=== PATIENT | female | born 1980 | race Caucasian/White ===

== ENCOUNTER 2016-08-12 19:32 | Emergency (ER) | payer BC ==
[~2016-08-12 19:32] MED LIST: Doxycycline 100 MG Tab PO ONE
[2016-08-12 19:39] VITALS: BP 155/96
[2016-08-12] MEDS ORDERED: methylPREDNISolone Sodium Succinate 125 MG/2 ML SDV IM STA (19:58)
[2016-08-12] MEDS ORDERED: cefTRIAXone 1 GM Vial IM ONE (19:58)
[2016-08-12] MEDS ORDERED: Take Home: Doxycycline 100 MG Tab, 4 Tab Pack PO ONE (19:59)
--- NOTE | 2016-08-12 20:09 | EDM.PDOC ---
ED HPI GENERAL MEDICAL PROBLEM - General Chief Complaint: General Stated Complaint: sinuses Time Seen by Provider: 08/12/16 19:40 Source of Information: Reports: Patient History Limitations: Reports: No Limitations - History of Present Illness INITIAL COMMENTS - FREE TEXT/NARRATIVE: This patient is a 36 year female that presents to the ER. Patient reports that since Sunday she has been having left sided congestion, facial pressure, sinus pain. She reports that she has been doing sinus rinses without success. Patient denies west[place], dizziness, n, v, d, f, cp, soa, abd pain, neck pain, sore throat. Patient reports she was prescribed augmentin on , she has taken each dose as prescribed per patient, but no improvement. Onset Date: 08/06/16 Duration: Day(s): (6) Location: Reports: Face Quality: Reports: Ache, Pressure, Throbbing Improves with: Reports: None Worsens with: Reports: None Associated Symptoms: Denies: Confusion, Chest Pain, Cough, cough w sputum, Diaphoresis, Fever/Chills, Headaches, Loss of Appetite, Malaise, Nausea/Vomiting , Rash, Seizure, Shortness of Breath, Syncope, Weakness Left Face Pain Score (Numeric/FACES): 8 - Related Data Allergies Allergy/AdvReac Type Severity Reaction Status Date / Time rofecoxib [From Vioxx] Allergy Cannot Verified 08/12/16 19:33 Remember Home Meds: Home Meds Acyclovir 1 tab PO DAILY 08/12/16 [History] Cholecalciferol (Vitamin D3) [Vitamin D3] 1,000 units PO DAILY 08/12/16 [History ] Loratadine [Claritin] 10 mg PO DAILY 08/12/16 [History] Montelukast [Singulair] 10 mg PO DAILY 08/12/16 [History] Past Medical History Cardiovascular History: Reports: Blood Clots/VTE/DVT Neurological History: Reports: Concussion - Past Surgical History HEENT Surgical History: Reports: Other (See Below) Other HEENT Surgeries/Procedures: "sinus surgery" Social & Family History - Tobacco Use Smoking Status *Q: Current Every Day Smoker Years of Tobacco use: 20 Packs/Tins Daily: 0.5 - Caffeine Use Caffeine Use: Reports: Coffee, Soda - Recreational Drug Use Recreational Drug Use: No ED ROS GENERAL - Review of Systems Review Of Systems: See Below Constitutional: Reports: No Symptoms HEENT: Reports: Sinus Problem (left sinus pain, pressure, swelling. Congestion. ) Respiratory: Reports: No Symptoms Cardiovascular: Reports: No Symptoms Endocrine: Reports: No Symptoms GI/Abdominal: Reports: No Symptoms : Reports: No Symptoms Musculoskeletal: Reports: No Symptoms Skin: Reports: No Symptoms Neurological: Reports: No Symptoms Psychiatric: Reports: No Symptoms Hematologic/Lymphatic: Reports: No Symptoms Immunologic: Reports: No Symptoms ED EXAM, GENERAL - Physical Exam Exam: See Below Exam Limited By: No Limitations General Appearance: Alert, WD/WN, No Apparent Distress Eye Exam: Bilateral Eye: Normal Inspection, Periorbital Changes, PERRL Ears: Normal External Exam, Normal Canal, Hearing Grossly Normal, Normal TMs Ear Exam: Bilateral Ear: Auricle Normal, Canal Normal, TM normal Nose: Normal Inspection, Normal Mucosa, No Blood Throat/Mouth: Normal Inspection, Normal Lips, Normal Gums, Normal Oropharynx, Normal Voice, No Airway Compromise, Other (dental decay throughout. No visible dental abscess. or dental tenderness. No trismus. No peritonsular abscess. ) Head: Facial Swelling (left maxilla sinus. Pain. ), Sinus Tenderness (left maxilla sinus, ethmoid. failed light illumination consistent with sinusitis. ) Neck: Normal Inspection, Supple, Non-Tender, Full Range of Motion Respiratory/Chest: No Respiratory Distress, Lungs Clear, Normal Breath Sounds, No Accessory Muscle Use Cardiovascular: Normal Peripheral Pulses, Regular Rate, Rhythm, No Edema, No Gallop, No JVD, No Murmur, No Rub Peripheral Pulses: 2+: Radial (L), Radial (R) Back Exam: Normal Inspection, Full Range of Motion Extremities: Normal Inspection, Normal Range of Motion, Non-Tender, No Pedal Edema, Normal Capillary Refill Neurological: Alert, Oriented, Normal Cognition, Normal Gait, No Motor/Sensory Deficits Psychiatric: Normal Affect, Normal Mood Skin Exam: Warm, Dry, Intact, Normal Color, No Rash Lymphatic: No Adenopathy Course - Vital Signs Last Recorded V/S: Last Vital Signs Temp 98.7 F 08/12/16 19:36 Pulse 80 08/12/16 19:36 Resp 18 08/12/16 19:36 BP 155/96 H 08/12/16 19:36 Pulse Ox 99 08/12/16 19:36 - Orders/Labs/Meds Orders: Active Orders 24 hr Category Date Time Status cefTRIAXone [Rocephin] Med 08/12/16 19:58 Once 1 gm IM ONETIME ONE methylPREDNISolone Sod Succ [Solu-MEDROL] Med 08/12/16 19:58 Stat 125 mg IM NOW STA Meds: Medications Discontinued Medications Generic Name Dose Route Start Last Admin Trade Name Grant PRN Reason Stop Dose Admin Ceftriaxone Sodium 1 gm 08/12/16 19:58 Rocephin IM 08/12/16 19:59 ONETIME ONE Doxycycline Monohydrate 1 packet 08/12/16 19:59 Take Home: Doxycycline 100 Mg, 4 Tab Pack PO 08/12/16 20:00 ONETIME ONE Methylprednisolone Sodium Succinate 125 mg 08/12/16 19:58 Solu-Medrol IM 08/12/16 19:59 NOW STA Departure - Departure Time of Disposition: 20:13 Disposition: Home, Self-Care 01 Condition: Fair Clinical Impression: Acute sinusitis Qualifiers: Sinusitis location: maxillary Recurrence: non-recurrent Qualified Code(s): J01.00 - Acute maxillary sinusitis, unspecified - Discharge Information Instructions: Sinusitis, Adult, [id number] Forms: ED Department Discharge Additional Instructions: Followup with your primary care provider Return to the ER for worsening of condition or any emergent concerns Doxycycline 100mg 1 pill twice a day for 10 days #16 no refill Given #4 in ER. Sinus rinses Mucinex over the counter IbuProfen over the counter for pain and swelling - My Orders Last 24 Hours: My Active Orders 08/12/16 19:58 cefTRIAXone [Rocephin] 1 gm IM ONETIME ONE methylPREDNISolone Sod Succ [Solu-MEDROL] 125 mg IM NOW STA - Assessment/Plan Last 24 Hours: My Active Orders 08/12/16 19:58 cefTRIAXone [Rocephin] 1 gm IM ONETIME ONE methylPREDNISolone Sod Succ [Solu-MEDROL] 125 mg IM NOW STA Plan: PLEASE SEE RN NOTE FOR PFSH.
== END 2016-08-12 20:30 | disposition home or self-care (01) ==
LOC: CC.ED 19:32
DX: J01.00 Acute maxillary sinusitis, unspecified (principal); F17.210 Nicotine dependence, cigarettes, uncomplicated; Z88.8 Allergy status to other drugs, medicaments and biological substances; Z79.899 Other long term (current) drug therapy
CPT/HCPCS: 96372; 99283; A9270; J0696; J2930

== ENCOUNTER 2019-03-31 00:04 | Emergency (ER) | payer SELFPAY ==
[2019-03-31 00:32] LABS: O2 DELIVERY DEVICE ROOM AIR; O2 SATURATION ARTERIAL 98 % (95-98); PCO2 ARTERIAL 29 mm/Hg0 (35-45); PO2 ARTERIAL 104 mm/Hg (80-100)
--- NOTE | 2019-03-31 00:40 | EDM.PDOC ---
ED HPI GENERAL MEDICAL PROBLEM - General Chief Complaint: Behavioral/Psych Stated Complaint: suicide attempt Time Seen by Provider: 03/31/19 00:07 Source of Information: Reports: Patient History Limitations: Reports: Intoxication - History of Present Illness INITIAL COMMENTS - FREE TEXT/NARRATIVE: This patient is a 38 year old female that presents to the ER. Patient arrives with police. Patient and police are historians. Patient reports she was arguing with her . She then got in her car in the garage, started the vehicle. The patient reports that she was in the vehicle for "7-8 minutes." The police report that she was called to the residence for a welfare check. Police reports when she arrived, there was loud music coming from the garage, the garage door was opened, and a lot of smoke/fumes was present in the garage per police. Police removed patient from the vehicle. Police reports patient was alert and able to ambulate without difficulty. The patient reports she has burning eyes, watery, from allergies. She denies [place], dizziness, n, v, d, f, chest pain, shortness of breath, cough, abd pain. Patient is alert and oriented. Patient drinks about 7 shots of fireball a night and is a smoker. Patient denies homicidal ideations. She says she denies suicidal ideation now. Onset: Today Onset Date: 03/31/19 Severity: Moderate Improves with: Reports: None Worsens with: Reports: None Associated Symptoms: Denies: Confusion, Chest Pain, Cough, cough w sputum, Diaphoresis, Fever/Chills, Headaches, Loss of Appetite, Malaise, Nausea/Vomiting , Rash, Seizure, Shortness of Breath, Syncope, Weakness - Related Data Allergies Allergy/AdvReac Type Severity Reaction Status Date / Time ketorolac [From Toradol] Allergy Burning on Verified 03/31/19 00:10 Urination rofecoxib [From Vioxx] Allergy Cannot Verified 08/12/16 19:33 Remember seasonal allergies Allergy Other Uncoded 03/31/19 00:10 Home Meds: Home Meds Acyclovir 1 tab PO DAILY 08/12/16 [History] Loratadine [Claritin] 10 mg PO DAILY 08/12/16 [History] Vitamin E 400 unit PO DAILY 03/31/19 [History] Past Medical History Cardiovascular History: Reports: Blood Clots/VTE/DVT Neurological History: Reports: Concussion - Past Surgical History HEENT Surgical History: Reports: Other (See Below) Other HEENT Surgeries/Procedures: "sinus surgery" Social & Family History - Caffeine Use Caffeine Use: Reports: Coffee, Soda ED ROS GENERAL - Review of Systems Review Of Systems: See Below Constitutional: Reports: No Symptoms HEENT: Reports: Other (watery, burning eyes. "I just have bad allergies, I am allergic to molds, pollen, oak, and trees.") Respiratory: Denies: Shortness of Breath, Wheezing, Pleuritic Chest Pain, Cough , Sputum, Hemoptysis Cardiovascular: Reports: No Symptoms. Denies: Chest Pain, Dyspnea on Exertion, Edema, Lightheadedness, Palpitations, Syncope Endocrine: Reports: No Symptoms GI/Abdominal: Reports: No Symptoms. Denies: Abdominal Pain, Diarrhea, Nausea, Vomiting : Reports: No Symptoms Musculoskeletal: Reports: No Symptoms Skin: Reports: No Symptoms. Denies: Cyanosis Neurological: Reports: No Symptoms, Other (no gait ataxia). Denies: Confusion, Dizziness, Headache, Numbness, Seizure, Syncope, Tingling, Tremors, Trouble Speaking, Weakness, Change in Speech, Gait Disturbance Psychiatric: Reports: Depression. Denies: Hallucinations, Homicidal Ideation, Suicidal Ideation (She currently denies. However, did have suicidal attempt. ) Hematologic/Lymphatic: Reports: No Symptoms Immunologic: Reports: No Symptoms ED EXAM, BURN/SMOKE INHALATION - Physical Exam Exam: See Below Exam Limited By: No Limitations General Appearance: Alert, WD/WN, No Apparent Distress, Other (Patient is cooperative. ) Eye Exam: Bilateral Eye: PERRL, Other (red, watery. ) Ears (Abbreviated): Normal External Exam, Normal Canal, Hearing Grossly Normal, Normal TMs Mouth/Throat: No Symptoms Reported Head: No Symptoms Neck: No Symptoms Respiratory: No Respiratory Distress, Lungs Clear, Normal Breath Sounds, No Accessory Muscle Use, Chest Non-Tender Cardiovascular: Normal Peripheral Pulses, Regular Rate, Rhythm, No Edema, No Gallop, No JVD, No Murmur, No Rub Peripheral Pulses: 2+: Radial (L), Radial (R), Posterior Tibial (L), Posterior Tibial (R) GI/Abdominal: Soft, Non-Tender Back Exam: Normal Inspection Extremities: Normal Inspection, Normal Range of Motion, Non-Tender, No Pedal Edema, Normal Capillary Refill Neurological: Alert, Oriented, Normal Cognition, Normal Gait, No Motor/Sensory Deficits Psychiatric: Normal Affect, Normal Mood Skin Exam: Warm, Dry, Intact, Normal Color, No Rash Lymphatic: No Adenopathy EKG INTERPRETATION EKG Date: 03/31/19 Time: 00:31 Rhythm: NSR Rate (Beats/Min): 72 QRS: Normal ST-T: Normal QT: Normal Comparison: NA - No Prior EKG Course - Vital Signs Last Recorded V/S: Last Vital Signs Temp 97.4 F 03/31/19 01:42 Pulse 75 03/31/19 01:42 Resp 16 03/31/19 01:42 BP 142/85 H 03/31/19 01:42 Pulse Ox 99 03/31/19 01:42 - Orders/Labs/Meds Orders: Active Orders 24 hr Category Date Time Status Oxygen Therapy Adult [Oxygen Therapy, ED] [RC] Care 03/31/19 00:21 Active ASDIRECTED Chest 2V [CR] Stat Exams 03/31/19 00:07 Taken ACETAMINOPHEN [REF] Stat Lab 03/31/19 07:20 Received CARBOXYHEMOGLOBIN [REF] Stat Lab 03/31/19 00:33 Received MISC TEST Stat Lab 03/31/19 00:46 Received SALICYLATE [REF] Stat Lab 03/31/19 07:20 Received Labs: Laboratory Tests 03/31/19 03/31/19 03/31/19 Range/Units 00:09 00:09 00:09 WBC 6.6 (5.0-10.0) 10^3/uL RBC 4.57 (4.00-5.50) 10^6/uL Hgb 15.4 (12.0-16.0) g/dL Hct 44.0 (37.0-47.0) % MCV 96.3 H (82.0-94.0) fL MCH 33.7 H (27.0-32.0) pg MCHC 35.0 (33.0-38.0) g/dL RDW Coeff of Adarsh 12.0 (11.0-15.0) % Plt Count 102 L (150-400) 10^3/uL Neut % (Auto) 53.7 (35-85) % Lymph % (Auto) 37.4 (10-55) % [place] % (Auto) 6.8 (0-16) % Eos % (Auto) 1.8 (0-5) % Baso % (Auto) 0.3 (0-3) % Neut # (Auto) 3.52 (1.80-7.00) 10^3/uL Lymph # (Auto) 2.46 (1.00-4.80) 10^3/uL [place] # (Auto) 0.45 (0.00-0.80) 10^3/uL Eos # (Auto) 0.12 (0.00-0.45) 10^3/uL Baso # (Auto) 0.02 10^3/uL ABG pH 7.42 (7.35-7.45) ABG pCO2 29 L (35-45) mm/Hg0 ABG pO2 104 H (80-100) mm/Hg ABG HCO3 19.0 L (22.0-26.0) mm/L ABG O2 Saturation 98 (95-98) % ABG Base Excess -5.0 L (-2.0-3.0) O2 Delivery Device Room air Sodium 143 (136-145) mEq/L Potassium 3.6 (3.5-5.0) mEq/L Chloride 106 (98-106) mEq/L Carbon Dioxide 23 (21-32) mmol/L BUN 6 L (7-18) mg/dL Creatinine 0.8 (0.6-1.0) mg/dL Est Cr Clr Drug Dosing 73.93 mL/min Estimated GFR (MDRD) > 60 (>=60) mL/min Glucose 109 H D (75-99) mg/dL Calcium 8.5 (8.4-10.1) mg/dL Total Bilirubin 0.3 (0.0-1.0) mg/dL AST 16 (15-37) U/L ALT 17 (12-78) U/L Alkaline Phosphatase 64 (46-116) U/L Total Protein 7.2 (6.4-8.2) g/dL Albumin 4.0 (3.4-5.0) g/dL HCG, Qual Urine Opiates Screen (NEGATIVE) Ur Oxycodone Screen (NEGATIVE) Urine Methadone Screen (NEGATIVE) Ur Barbiturates Screen (NEGATIVE) U Tricyclic Antidepress (NEGATIVE) Ur Phencyclidine Scrn (NEGATIVE) Ur Amphetamine Screen (NEGATIVE) U Methamphetamines Scrn (NEGATIVE) Urine MDMA Screen (NEGATIVE) U Benzodiazepines Scrn (NEGATIVE) Urine Cocaine Screen (NEGATIVE) U Marijuana (THC) Screen (NEGATIVE) Ethyl Alcohol 186 H (0-3) mg/dL 03/31/19 03/31/19 Range/Units 00:10 00:45 WBC (5.0-10.0) 10^3/uL RBC (4.00-5.50) 10^6/uL Hgb (12.0-16.0) g/dL Hct (37.0-47.0) % MCV (82.0-94.0) fL MCH (27.0-32.0) pg MCHC (33.0-38.0) g/dL RDW Coeff of Adarsh (11.0-15.0) % Plt Count (150-400) 10^3/uL Neut % (Auto) (35-85) % Lymph % (Auto) (10-55) % [place] % (Auto) (0-16) % Eos % (Auto) (0-5) % Baso % (Auto) (0-3) % Neut # (Auto) (1.80-7.00) 10^3/uL Lymph # (Auto) (1.00-4.80) 10^3/uL [place] # (Auto) (0.00-0.80) 10^3/uL Eos # (Auto) (0.00-0.45) 10^3/uL Baso # (Auto) 10^3/uL ABG pH (7.35-7.45) ABG pCO2 (35-45) mm/Hg0 ABG pO2 (80-100) mm/Hg ABG HCO3 (22.0-26.0) mm/L ABG O2 Saturation (95-98) % ABG Base Excess (-2.0-3.0) O2 Delivery Device Sodium (136-145) mEq/L Potassium (3.5-5.0) mEq/L Chloride (98-106) mEq/L Carbon Dioxide (21-32) mmol/L BUN (7-18) mg/dL Creatinine (0.6-1.0) mg/dL Est Cr Clr Drug Dosing mL/min Estimated GFR (MDRD) (>=60) mL/min Glucose (75-99) mg/dL Calcium (8.4-10.1) mg/dL Total Bilirubin (0.0-1.0) mg/dL AST (15-37) U/L ALT (12-78) U/L Alkaline Phosphatase (46-116) U/L Total Protein (6.4-8.2) g/dL Albumin (3.4-5.0) g/dL HCG, Qual Negative Urine Opiates Screen Negative (NEGATIVE) Ur Oxycodone Screen Negative (NEGATIVE) Urine Methadone Screen Negative (NEGATIVE) Ur Barbiturates Screen Negative (NEGATIVE) U Tricyclic Antidepress Negative (NEGATIVE) Ur Phencyclidine Scrn Negative (NEGATIVE) Ur Amphetamine Screen Negative (NEGATIVE) U Methamphetamines Scrn Negative (NEGATIVE) Urine MDMA Screen Negative (NEGATIVE) U Benzodiazepines Scrn Negative (NEGATIVE) Urine Cocaine Screen Negative (NEGATIVE) U Marijuana (THC) Screen Negative (NEGATIVE) Ethyl Alcohol (0-3) mg/dL - Re-Assessments/Exams Free Text/Narrative Re-Assessment/Exam: 03/31/19 12:45 Upon arrival, after obtaining ABG, patient was placed on 15L NRB. 03/31/19 01:00 Spoke to Racheal to ensure no more orders or treatment. Believe exposure was minimal and no further treatment. Refer to psych. Also spoke to Poison control as well. Recommended could give 15L NRB for 2 hours, if needed. Patient has been taking it off and refusing to wear it. No further treatment at this time. 03/31/19 01:20am State Screener for psych has called and will now talk to the patient. Patient went from being cooperative to now crying, saying she will not go to a hospital. She has agreed to talk to the assisted living care manager. 03/31/19 01:35am Outreach Nurse Kandis has called me back and patient is no longer being cooperative. She stopped answering questions and put phone down. The patient is not safe to be discharged. She is a threat to harm herself and possibly others. Patient will be committed, Kandis will commit. Police here in the ER will transport patient. I will discharge this patient. PATIENT IS MEDICALLY CLEARED. 03/31/19 01:50 I called and spoke to Dr. Arreola at [facility] They have accepted the patient. Will transfer via law enforcement. Departure - Departure Time of Disposition: 01:41 Disposition: DC/Tfer to Psych Hosp/Unit 65 Condition: Fair Clinical Impression: Depressive disorder, Self-harm, Suicide attempt, Carbon monoxide exposure - Discharge Information *PRESCRIPTION DRUG MONITORING PROGRAM REVIEWED*: Not Applicable *COPY OF PRESCRIPTION DRUG MONITORING REPORT IN PATIENT NEHEMIAS: Not Applicable Referrals: PCP,None [Primary Care Provider] - Forms: ED Department Discharge Sepsis Event Note - Evaluation Sepsis Screening Result: No Definite Risk - Focused Exam Vital Signs: Vital Signs Temp Pulse Resp BP Pulse Ox 03/31/19 01:42 97.4 F 75 16 142/85 H 99 Date Exam was Performed: 03/31/19 Time Exam was Performed: 12:18 - My Orders Last 24 Hours: My Active Orders 03/31/19 00:07 Chest 2V [CR] Stat 03/31/19 00:21 Oxygen Therapy Adult [Oxygen Therapy, ED] [RC] ASDIRECTED 03/31/19 00:33 CARBOXYHEMOGLOBIN [REF] Stat 03/31/19 00:46 MISC TEST Stat 03/31/19 07:20 ACETAMINOPHEN [REF] Stat SALICYLATE [REF] Stat - Assessment/Plan Last 24 Hours: My Active Orders 03/31/19 00:07 Chest 2V [CR] Stat 03/31/19 00:21 Oxygen Therapy Adult [Oxygen Therapy, ED] [RC] ASDIRECTED 03/31/19 00:33 CARBOXYHEMOGLOBIN [REF] Stat 03/31/19 00:46 MISC TEST Stat 03/31/19 07:20 ACETAMINOPHEN [REF] Stat SALICYLATE [REF] Stat Plan: This patient is being transferred via police to [facility] for committed admit. Risk vs benefits explained to patient, however she is tearful and does not want to go. But she did hear risk vs benefits. Risk of transfer are mvc. Risk of staying in [facility] or discharge are comitting suicide with success, , worsening of feelings. Benefits of transfer are psych treatment , suicide prevention. Benefits of staying in [place] is close to home.
[2019-03-31 00:49] LABS: CHLORIDE,CL 106 mEq/L (98-106); SODIUM,NA 143 mEq/L (136-145)
[2019-03-31 01:44] VITALS: BP 142/85; PULSE 75
== END 2019-03-31 02:15 ==
LOC: CC.ED 00:04
DX: T58.92XA Toxic effect of carbon monoxide from unspecified source, intentional self-harm, initial encounter (principal); F32.9 Major depressive disorder, single episode, unspecified; Z88.6 Allergy status to analgesic agent; Z91.09 Other allergy status, other than to drugs and biological substances; Y92.810 Car as the place of occurrence of the external cause
CPT/HCPCS: 36415; 36600; 71046; 80053; 80305-QW; 80307; 82375; 82803; 84703; 85025; 93005; 99285-25

== ENCOUNTER 2021-05-01 12:37 | Emergency (ER) | payer BC ==
[2021-05-01 12:49] VITALS: BP 149/82; PULSE 90
[2021-05-01] MEDS: Acetaminophen 500 MG Tab PO ONE (12:51)
[2021-05-01] MEDS: Ibuprofen 200 MG Tab PO ONE (12:53)
[2021-05-01] MEDS: Naproxen 500 MG Tab PO ONE (12:55)
== END 2021-05-01 13:30 | disposition home or self-care (01) ==
LOC: CC.ED 12:37
DX: M79.10 Myalgia, unspecified site (principal); Z88.6 Allergy status to analgesic agent; Z91.048 Other nonmedicinal substance allergy status; Z88.8 Allergy status to other drugs, medicaments and biological substances; Z20.822 Contact with and (suspected) exposure to COVID-19
CPT/HCPCS: 99283; 99284; A9270-GY; U0002